=== PATIENT | female | born 1955 | race Caucasian/White ===

== ENCOUNTER → 2023-09-03 12:39 | Outpatient (REF) | payer MEDICARE, SELFPAY ==
--- NOTE | 2023-09-03 12:45 | CA_ITS ---
Transthoracic Echocardiogram Patient (Last, First, Middle): Preeti Chan, Gender: Female Date of : 1955 Age: 67 Procedure Date: 09/03/2023 Procedure Type: Transthoracic Echocardiogram Location: OP Height: 167.64 cm Weight: 113.4 kg BSA: 2.20 m2 Heart Rate: 82 bpm BP: 122 / 76 mmHg Installer Helper: DAVID/LAURA Referring MD: Ev Graham PA-C Symptoms: AFIB I48.91 Study Quality: Technically Difficult ECG Rhythm: Sinus Conclusions: - The left ventricular systolic function is normal. The visually estimated ejection fraction is between 65-70%. - There is moderately increased left ventricular wall thickness. - No obvious valvular pathology seen on this study. Findings Procedure Information Contrast agent, definity, is being given per protocol without apparent complications. The quality of the study was technically difficult. The study quality is limited by patients body habitus. Left Ventricle Normal left ventricular cavity size. There is moderately increased left ventricular wall thickness. The left ventricular systolic function is normal. The visually estimated ejection fraction is between 65-70%. There is no evidence of regional wall motion abnormalities. Diastolic function is normal for age. Right Ventricle Normal right ventricular cavity size and systolic function. Atria Both atria are normal in size. Aortic Valve There is a normal trileaflet aortic valve. There is no aortic valve stenosis. There is no aortic valve regurgitation. Mitral Valve The mitral valve appears normal. There is no mitral valve regurgitation. There is no mitral valve stenosis. Pulmonic Valve The pulmonic valve is likely normal. Tricuspid Valve Normal tricuspid valve structure. There is trace tricuspid valve regurgitation. There is no evidence of pulmonary hypertension. Great Vessels The asc aorta is normal in size. Venous The inferior vena cava was not well visualized. Pericardium/Pleural There is no evidence of pericardial effusion. Prior Study Comparison No prior study available for comparison. Recommendations, Care & Conclusions No obvious valvular pathology seen on this study. Measurements 2D Linear Measurements IVSd: 1.36 0.6-0.9/0.6-1.0 cm LVIDd: 4.98 3.9-5.3/4.2-5.9 cm LVIDd Index: 2.26 2.4-3.2/2.2-3.1 cm/m2 LVIDs: 3.14 2.0-3.6 cm LA Diam: 3.90 2.7-3.8/3.0-4.0 cm LAIDs Index: 1.77 1.5-2.3 cm/m2 LVOT Diam: 2.10 3.0+(-)1.3 cm 2D Systolic Function EF 4C: 66.40 >55% EF 2C: 81.20 >55% EF BiP: 74.80 >55% Mitral Valve MV Pk E: 0.47 MV PK A: 0.74 MV Decel Time: 197.00 E/A: 0.60 E'Lateral: 7.83 E'Medial: 6.31 E/E' Med: 7.40 E/E' Lat: 6.00 PHT: 58.00 MVA PHT: 3.79 Decel [place]: 2.37 Aortic Valve AoV Pk Mikie: 1.17 AoV Pk Grad: 5.00 MARYSOL: 2.89 LVOT LVOT Pk Mikie: 0.93 LVOT Mn Mikie: 0.67 LVOT VTI: 0.19 LVOT Pk Grad: 3.00 LVOT Mn Grad: 2.00 LVOT Diam: 2.10 LVOT Area: 3.46 Diastolic Function MV Pk E: 0.47 MV Pk A: 0.74 E/A: 0.60 E'Medial: 6.31 E/E' Med: 7.40 E' Laterial: 7.83 E/E' Lat: 6.00 Right Ventricle TAPSE (mm): 22.30 TVS' Mikie: 11.00 Great Vessels Aorta Sinus of Valsalva: 3.30 2.0-3.5 cm Ao Asc: 3.70 2.1-3.4 cm Pulmonary Valve PV Pk Mikie: 0.72 Peak PV Grad: 2.00 Updated in Other Vendor System with Status of Final Gabriel Emerson MD electronically signed on 09/04/2023 3:20:55 PM with status of Final
== END ==
LOC: HO.CARD 12:39
PROVIDERS: Visit Provider Physician Assistant
DX: I48.91 Unspecified atrial fibrillation (principal)
CPT/HCPCS: 93306; Q9957

== ENCOUNTER → 2023-09-03 12:45 | Outpatient (BNV) | payer MEDICARE, SELFPAY | PROVIDERS: Visit Provider Internal Medicine | DX: I48.91 Unspecified atrial fibrillation (principal) | CPT/HCPCS: 93306 ==